=== PATIENT | male | born 1960 | race Caucasian/White ===

== ENCOUNTER 2018-09-15 10:14 | Inpatient (IN) ==
[2018-09-15] MEDS ORDERED: methylPREDNISolone SOD SUC 125 MG/2 ML VIAL IV STA (10:47)
[2018-09-15] MEDS ORDERED: ALBUTEROL/IPRATROPIUM 3 ML NEB RESP TX STA (10:47)
[2018-09-15 11:05] LABS: Basophils # 0.1 10*3/uL (0.0-0.2); Basophils % 0.5 % (0.0-0.8); Eosinophils # 0.2 10*3/uL (0.0-0.87); Eosinophils % 1.7 % (0.00-10.9); Hematocrit 50.1 VOL% (42.0-52.0); Hemoglobin 16.5 GM/DL (14.0-18.0); Immature Granulocytes % 0.6 %; Immature Granulocytes Absolute 0.06 #; Lymphocytes # 1.8 10*3/uL (1.4-4.0); Lymphocytes % 19.6 % (21.2-54.2); Mean Corpuscular HGB Conc 32.9 GM/DL (32-36); Mean Corpuscular Hemoglobin 29 PG (27-34); Mean Corpuscular Volume 88.2 FL (87-102); Mean Platelet Volume 9.4 FL (9.6-12.0); Monocytes # 0.8 10*3/uL (0.11-0.8); Monocytes % 8.4 % (1.7-12.7); Neutrophils # 6.5 10*3/uL (1.4-7.4); Neutrophils % 69.2 % (38.7-73.9); Platelet Count 324 T/CUMM (130-400); Red Blood Count 5.68 MC/CUMM (3.8-5.5); Red Cell Distribution Width 12.5 % (9.3-17.3); White Blood Count 9.4 T/CUMM (4-12)
[2018-09-15 11:11] LABS: INR 0.9; PT Patient Result 10.2 SECS
[2018-09-15 11:25] LABS: ABG Base Excess 0.7 MMOL/L (-2.5-2.5); ABG HCO3 24.9 MMOL/L (20-26); ABG Oxygen Saturation 94.6 % (95-100); ABG PCO2 36.7 MM HG (35-48); ABG PH 7.433 (7.35-7.45); ABG PO2 70.1 MM HG (80-95); ABG TCO2 20.7 MMOL/L (23-27)
[2018-09-15 11:35] LABS: Albumin 3.5 G/DL (3.4-5.0); Calcium 8.9 MG/DL (8.5-10.1); Osmolality,Calculated 274.7 MOS/KG (273-304); Potassium 4.1 MMOL/L (3.5-5.1); Total Protein 6.9 G/DL (6.4-8.3)
[2018-09-15] MEDS ORDERED: PROMETHAZINE 25 MG/1 ML VIAL IM PRN (11:59)
[2018-09-15] MEDS ORDERED: ACETAMINOPHEN 325 MG TABLET PO PRN (11:59)
[2018-09-15] MEDS ORDERED: ONDANSETRON 4 MG/2 ML VIAL IV PRN (11:59)
[2018-09-15] MEDS ORDERED: KETOROLAC 60 MG/2 ML VIAL IM ONE (13:21)
[2018-09-15 15:23] LABS: Total Protein,Body Fluid 4.3 G/DL
[2018-09-15 16:44] LABS: Eosinophils,Pleural Fluid 6 %; Lymphocytes,Pleural Fluid 80 %; Monocytes,Pleural Fluid 4 %; Neutrophils,Pleural Fluid 10 %; RBC,Pleural Fluid 17724 T/CUMM
[2018-09-15] MEDS: LEVOFLOXACIN INJ 750 MG in PREMIX 1 EACH IV SCH (18:08)
[2018-09-15] MEDS: ALBUTEROL/IPRATROPIUM 3 ML NEB RESP TX SCH (19:40)
[2018-09-16] MEDS: ALBUTEROL/IPRATROPIUM 3 ML NEB RESP TX SCH ×4 (00:33→19:43)
[2018-09-16 06:01] LABS: Basophils % 0.2 % (0.0-0.8); Eosinophils % 0.2 % (0.00-10.9); Hemoglobin 14.1 GM/DL (14.0-18.0); Immature Granulocytes % 1.6 %; Immature Granulocytes Absolute 0.24 #; Lymphocytes # 1.3 10*3/uL (1.4-4.0); Lymphocytes % 8.9 % (21.2-54.2); Mean Corpuscular HGB Conc 33.6 GM/DL (32-36); Mean Corpuscular Hemoglobin 30 PG (27-34); Mean Corpuscular Volume 88.1 FL (87-102); Mean Platelet Volume 9.3 FL (9.6-12.0); Monocytes # 0.9 10*3/uL (0.11-0.8); Monocytes % 6.4 % (1.7-12.7); Neutrophils # 12.1 10*3/uL (1.4-7.4); Neutrophils % 82.7 % (38.7-73.9); Platelet Count 259 T/CUMM (130-400); Red Blood Count 4.77 MC/CUMM (3.8-5.5); White Blood Count 14.6 T/CUMM (4-12)
[2018-09-16 06:23] LABS: Calcium 8.3 MG/DL (8.5-10.1); Osmolality,Calculated 277.7 MOS/KG (273-304); Potassium 4.3 MMOL/L (3.5-5.1); Risk Ratio 3.31; Thyroid Stimulating Hormone 0.642 uIU/ml (0.358-3.74); VLDL CHOLESTEROL 23.8 MG/DL
[2018-09-16] MEDS ORDERED: LIDOCAINE 2%/EPI 20 ML VIAL MISC INJ ONE (11:00)
[2018-09-16] MEDS: PANTOPRAZOLE 40 MG TABLET PO SCH (11:08)
[2018-09-16] MEDS ORDERED: MORPHINE 10 MG/1 ML VIAL IV ONE (14:50)
[2018-09-16] MEDS ORDERED: MORPHINE 10 MG/1 ML VIAL ONE (14:58)
[2018-09-16] MEDS: LEVOFLOXACIN INJ 750 MG in PREMIX 1 EACH IV SCH (16:33)
[2018-09-16] MEDS: MORPHINE 4 MG/1 ML VIAL IV PRN ×2 (18:34→22:56)
[2018-09-16] MEDS: ENOXAPARIN 40 MG/0.4 ML SYRINGE SUBCUT SCH (22:56)
[2018-09-17] MEDS: ALBUTEROL/IPRATROPIUM 3 ML NEB RESP TX SCH ×4 (00:14→20:50)
[2018-09-17] MEDS: MORPHINE 4 MG/1 ML VIAL IV PRN ×2 (01:36→05:49)
[2018-09-17] MEDS ORDERED: GLYCOPYRROLATE 0.4 MG/2 ML VIAL IM ONE (07:00)
[2018-09-17] MEDS ORDERED: PROMETHAZINE 25 MG/1 ML VIAL IM ONE (07:00)
[2018-09-17] MEDS ORDERED: MEPERIDINE 50 MG/1 ML VIAL IM ONE (07:00)
[2018-09-17] MEDS ORDERED: MIDAZOLAM 2 MG/2 ML VIAL ONE (07:00)
[2018-09-17] MEDS ORDERED: MIDAZOLAM 2 MG/2 ML VIAL IV ONE (07:30)
[2018-09-17] MEDS ORDERED: LIDOCAINE 2% 20 ML VIAL RESP TX ONE (07:30)
[2018-09-17] MEDS ORDERED: LIDOCAINE 2% VISCOUS 100 ML BOTTLE SWISH/SPIT ONE (07:30)
[2018-09-17] MEDS ORDERED: LIDOCAINE 1% 20 ML VIAL MISC INJ ONE (07:30)
[2018-09-17] MEDS: PANTOPRAZOLE 40 MG TABLET PO SCH (10:26)
[2018-09-17] MEDS ORDERED: HYDROmorphone 2 MG/1 ML VIAL IV PRN (13:28)
[2018-09-17] MEDS: KETOROLAC 30 MG/1 ML VIAL IV SCH ×2 (14:01→20:20)
[2018-09-17] MEDS: LEVOFLOXACIN INJ 750 MG in PREMIX 1 EACH IV SCH (16:13)
[2018-09-17] MEDS: ENOXAPARIN 40 MG/0.4 ML SYRINGE SUBCUT SCH (20:22)
[2018-09-18] MEDS: ALBUTEROL/IPRATROPIUM 3 ML NEB RESP TX SCH ×4 (00:42→20:40)
[2018-09-18] MEDS: KETOROLAC 30 MG/1 ML VIAL IV SCH ×4 (01:52→18:44)
[2018-09-18 04:28] LABS: Basophils # 0.1 10*3/uL (0.0-0.2); Basophils % 0.7 % (0.0-0.8); Eosinophils # 0.2 10*3/uL (0.0-0.87); Eosinophils % 2.9 % (0.00-10.9); Hemoglobin 13.7 GM/DL (14.0-18.0); Immature Granulocytes % 0.5 %; Immature Granulocytes Absolute 0.04 #; Lymphocytes # 1.6 10*3/uL (1.4-4.0); Lymphocytes % 20.8 % (21.2-54.2); Mean Corpuscular HGB Conc 31.9 GM/DL (32-36); Mean Corpuscular Hemoglobin 29 PG (27-34); Mean Corpuscular Volume 89.4 FL (87-102); Mean Platelet Volume 9.2 FL (9.6-12.0); Monocytes # 0.7 10*3/uL (0.11-0.8); Monocytes % 9.8 % (1.7-12.7); Neutrophils # 4.9 10*3/uL (1.4-7.4); Neutrophils % 65.3 % (38.7-73.9); Platelet Count 241 T/CUMM (130-400); Red Blood Count 4.81 MC/CUMM (3.8-5.5); Red Cell Distribution Width 12.2 % (9.3-17.3); White Blood Count 7.6 T/CUMM (4-12)
[2018-09-18 04:48] LABS: Calcium 8.3 MG/DL (8.5-10.1); Osmolality,Calculated 278.7 MOS/KG (273-304); Potassium 3.8 MMOL/L (3.5-5.1)
[2018-09-18] MEDS ORDERED: DOXYCYCLINE HYCLATE INJ 200 MG, LIDOCAINE 1% INJ 20 ML in STERILE WATER INJ 40 ML INTRAPLEUR ONE (08:00)
[2018-09-18] MEDS: PANTOPRAZOLE 40 MG TABLET PO SCH (08:25)
[2018-09-18] MEDS: LEVOFLOXACIN INJ 750 MG in PREMIX 1 EACH IV SCH (17:53)
[2018-09-18 18:21] LABS: Hematocrit 44.2 VOL% (42.0-52.0); Hemoglobin 14.4 GM/DL (14.0-18.0)
[2018-09-19] MEDS: ALBUTEROL/IPRATROPIUM 3 ML NEB RESP TX SCH ×3 (00:47→13:37)
[2018-09-19 04:28] LABS: Basophils % 0.4 % (0.0-0.8); Eosinophils # 0.2 10*3/uL (0.0-0.87); Eosinophils % 2.9 % (0.00-10.9); Hematocrit 40.8 VOL% (42.0-52.0); Hemoglobin 13.2 GM/DL (14.0-18.0); Immature Granulocytes % 0.7 %; Immature Granulocytes Absolute 0.05 #; Lymphocytes # 1.1 10*3/uL (1.4-4.0); Lymphocytes % 14.7 % (21.2-54.2); Mean Corpuscular HGB Conc 32.4 GM/DL (32-36); Mean Corpuscular Hemoglobin 29 PG (27-34); Mean Corpuscular Volume 88.7 FL (87-102); Mean Platelet Volume 9.2 FL (9.6-12.0); Monocytes # 0.6 10*3/uL (0.11-0.8); Monocytes % 8.2 % (1.7-12.7); Neutrophils # 5.2 10*3/uL (1.4-7.4); Neutrophils % 73.1 % (38.7-73.9); Platelet Count 234 T/CUMM (130-400); Red Cell Distribution Width 12.2 % (9.3-17.3); White Blood Count 7.2 T/CUMM (4-12)
[2018-09-19] MEDS: PANTOPRAZOLE 40 MG TABLET PO SCH (08:19)
[2018-09-19] MEDS: MORPHINE 4 MG/1 ML VIAL IV PRN ×2 (08:19→11:11)
[2018-09-19] MEDS ORDERED: DOXYCYCLINE HYCLATE INJ 200 MG, LIDOCAINE 1% INJ 20 ML in STERILE WATER INJ 40 ML INTRAPLEUR ONE (09:00)
[2018-09-19 16:00] VITALS: BP 116/75
[2018-09-19] MEDS: LEVOFLOXACIN INJ 750 MG in PREMIX 1 EACH IV SCH (17:17)
== END 2018-09-19 17:45 | disposition home or self-care (01) | DRG 167 ==
LOC: N.ED 10:14 → SUPCPDRO 12:34 → N.EDINP 12:34 → N.5E 16:09 → N.4E 09-17 20:49
PROVIDERS: ADMIT Family Medicine; ATTEND Family Medicine
PROC: BRONCHB (2018-09-17 07:35)

== ENCOUNTER 2019-09-09 22:30 | Observation (INO) ==
[2019-09-09] MEDS ORDERED: ALBUTEROL/IPRATROPIUM 3 ML NEB RESP TX STA (23:07)
[2019-09-09] MEDS ORDERED: MEROPENEM 1,000 MG in SODIUM CHLORIDE 0.9% 100 ML IV ONE (23:07)
[2019-09-09] MEDS ORDERED: methylPREDNISolone SOD SUC 125 MG/2 ML VIAL IV STA (23:07)
[2019-09-09] MEDS ORDERED: ACETAMINOPHEN/CODEINE 120-12 MG/5 ML 12.5 ML UDCUP PO STA (23:19)
[2019-09-09 23:20] LABS: Basophils % 0.6 % (0.0-0.8); Eosinophils # 0.2 10*3/uL (0.0-0.87); Eosinophils % 2.8 % (0.00-10.9); Hematocrit 35.1 VOL% (42.0-52.0); Immature Granulocytes % 0.7 %; Immature Granulocytes Absolute 0.05 #; Lymphocytes # 0.9 10*3/uL (1.4-4.0); Lymphocytes % 13.8 % (21.2-54.2); Mean Corpuscular HGB Conc 31.3 GM/DL (32-36); Mean Corpuscular Volume 81.1 FL (87-102); Mean Platelet Volume 9.1 FL (9.6-12.0); Neutrophils % 74.1 % (38.7-73.9); Platelet Count 282 T/CUMM (130-400); Red Blood Count 4.33 MC/CUMM (3.8-5.5); Red Cell Distribution Width 12.2 % (9.3-17.3); White Blood Count 6.8 T/CUMM (4-12)
[2019-09-09 23:36] LABS: PT Patient Result 10.5 SECS (9.6-12.2); Partial Thromboplastin Time 35.3 SECS (20.8-36.0)
[2019-09-09 23:37] LABS: Alanine Aminotransferase 18 U/L (16-61); Albumin 2.9 G/DL (3.4-5.0); Alkaline Phosphatase 156 U/L (45-117); Aspartate Amino Transferase 13 U/L (0-37); Bilirubin,Total < 0.39 MG/DL (0.2-1.0); Blood Urea Nitrogen 16 MG/DL (7-18); Calcium 8.7 MG/DL (8.5-10.1); Estimated Glom Filtration Rate 83 ML/MIN; Glucose 110 MG/DL (74-106); Total Protein 7.1 G/DL (6.4-8.3)
[2019-09-10] MEDS ORDERED: NICOTINE 21 MG/24 HR PATCH TRANSDERM PRN (01:35)
[2019-09-10] MEDS ORDERED: MORPHINE 4 MG/1 ML VIAL IV PRN (01:35)
[2019-09-10] MEDS ORDERED: ONDANSETRON 4 MG/2 ML VIAL IV PRN ×2 (01:35→16:26)
[2019-09-10] MEDS ORDERED: methylPREDNISolone SOD SUC 40 MG/1 ML VIAL IV SCH (02:00)
[2019-09-10] MEDS: MEROPENEM 500 MG in SODIUM CHLORIDE 0.9% 100 ML IV SCH ×3 (05:32→21:11)
[2019-09-10] MEDS: ALBUTEROL/IPRATROPIUM 3 ML NEB RESP TX SCH ×3 (07:18→21:23)
[2019-09-10 08:06] LABS: Basophils % 0.2 % (0.0-0.8); Hematocrit 35.6 VOL% (42.0-52.0); Hemoglobin 11.3 GM/DL (14.0-18.0); Immature Granulocytes % 0.4 %; Immature Granulocytes Absolute 0.02 #; Lymphocytes # 0.5 10*3/uL (1.4-4.0); Lymphocytes % 10.3 % (21.2-54.2); Mean Corpuscular HGB Conc 31.7 GM/DL (32-36); Mean Corpuscular Volume 79.8 FL (87-102); Mean Platelet Volume 9.2 FL (9.6-12.0); Monocytes % 0.8 % (1.7-12.7); Neutrophils % 88.3 % (38.7-73.9); Platelet Count 265 T/CUMM (130-400); Red Blood Count 4.46 MC/CUMM (3.8-5.5); Red Cell Distribution Width 12.3 % (9.3-17.3); White Blood Count 5.1 T/CUMM (4-12)
[2019-09-10] MEDS: PANTOPRAZOLE 40 MG VIAL IV SCH ×2 (10:07→21:06)
[2019-09-10] MEDS ORDERED: BENZTROPINE 2 MG/2 ML AMP IV PRN (16:26)
[2019-09-10] MEDS ORDERED: TEMAZEPAM 7.5 MG CAPSULE PO PRN (16:26)
[2019-09-10] MEDS ORDERED: LACTULOSE 20 GM/30 ML UDCUP PO PRN (16:26)
[2019-09-10] MEDS ORDERED: chlorproMAZINE 25 MG TABLET PO PRN (16:26)
[2019-09-10] MEDS ORDERED: ACETAMINOPHEN 325 MG TABLET PO PRN (16:26)
[2019-09-10] MEDS ORDERED: ALPRAZolam 0.25 MG TABLET PO PRN (16:26)
[2019-09-10] MEDS ORDERED: MAGNESIUM HYDROXIDE SUSP 30 ML UDCUP PO PRN (16:26)
[2019-09-10] MEDS ORDERED: diphenhydrAMINE CAP 25 MG CAPSULE PO PRN (16:26)
[2019-09-10] MEDS ORDERED: LOPERAMIDE 2 MG CAPSULE PO PRN ×2 (16:26)
[2019-09-10] MEDS ORDERED: chlorproMAZINE INJ 50 MG in SODIUM CHLORIDE 0.9% 100 ML IV PRN (16:26)
[2019-09-10] MEDS ORDERED: guaiFENesin 200 MG/10 ML UDCUP PO PRN (16:26)
[2019-09-10] MEDS ORDERED: chlorproMAZINE INJ 25 MG in SODIUM CHLORIDE 0.9% 100 ML IV PRN (16:26)
[2019-09-10] MEDS ORDERED: MYLANTA/LIDO VISC 2:1 300 ML BOTTLE SWISH/SWAL PRN (16:26)
[2019-09-10] MEDS ORDERED: PROMETHAZINE INJ 25 MG in SODIUM CHLORIDE 0.9% 50 ML IV PRN (16:26)
[2019-09-10] MEDS ORDERED: MYLANTA/LIDO VISC 2:1 300 ML BOTTLE SWISH/SPIT PRN (16:26)
[2019-09-10] MEDS ORDERED: ALUMINUM/MAGNES/SIMETH MAX STR 30 ML UDCUP PO PRN (16:26)
[2019-09-10] MEDS ORDERED: traMADol 50 MG TABLET PO PRN (16:26)
[2019-09-10] MEDS: SODIUM CHLORIDE 0.9% 1,000 ML IV SCH (21:12)
[2019-09-11] MEDS: ALBUTEROL/IPRATROPIUM 3 ML NEB RESP TX SCH ×4 (02:23→19:17)
[2019-09-11] MEDS: MEROPENEM 500 MG in SODIUM CHLORIDE 0.9% 100 ML IV SCH ×4 (03:23→20:58)
[2019-09-11 05:42] LABS: Basophils % 0.1 % (0.0-0.8); Hematocrit 30.4 VOL% (42.0-52.0); Hemoglobin 9.6 GM/DL (14.0-18.0); Immature Granulocytes % 0.7 %; Immature Granulocytes Absolute 0.08 #; Lymphocytes # 0.9 10*3/uL (1.4-4.0); Lymphocytes % 7.6 % (21.2-54.2); Mean Corpuscular HGB Conc 31.6 GM/DL (32-36); Mean Corpuscular Volume 81.3 FL (87-102); Mean Platelet Volume 9.3 FL (9.6-12.0); Monocytes % 5.8 % (1.7-12.7); Neutrophils % 85.8 % (38.7-73.9); Platelet Count 265 T/CUMM (130-400); Red Blood Count 3.74 MC/CUMM (3.8-5.5); Red Cell Distribution Width 12.2 % (9.3-17.3); White Blood Count 11.4 T/CUMM (4-12)
[2019-09-11 06:06] LABS: Albumin 2.6 G/DL (3.4-5.0); Bilirubin,Total 0.7 MG/DL (0.2-1.0); Calcium 8.5 MG/DL (8.5-10.1); Ferritin 276.8 ng/ml (26-388); Total Protein 6.3 G/DL (6.4-8.3)
[2019-09-11] MEDS ORDERED: LIDOCAINE 2% 20 ML VIAL RESP TX ONE (07:00)
[2019-09-11] MEDS ORDERED: MEPERIDINE 50 MG/1 ML VIAL IM ONE (07:30)
[2019-09-11] MEDS ORDERED: PROMETHAZINE 25 MG/1 ML VIAL IM ONE (07:30)
[2019-09-11] MEDS ORDERED: MIDAZOLAM 2 MG/2 ML VIAL IV ONE (08:00)
[2019-09-11] MEDS ORDERED: LIDOCAINE 1% 20 ML VIAL MISC INJ ONE (08:00)
[2019-09-11] MEDS ORDERED: LIDOCAINE 2% VISCOUS 100 ML BOTTLE SWISH/SPIT ONE (08:00)
[2019-09-11] MEDS: PANTOPRAZOLE 40 MG VIAL IV SCH ×2 (08:41→20:54)
[2019-09-11] MEDS ORDERED: POTASSIUM CHLORIDE RIDER 10 MEQ in PREMIX 1 EACH IV PRN (08:54)
[2019-09-11] MEDS: POTASSIUM CHLORIDE 20 MEQ TABLET PO PRN ×3 (11:35→18:10)
[2019-09-11] MEDS: SODIUM CHLORIDE 0.9% 1,000 ML IV SCH (14:26)
[2019-09-12] MEDS: ALBUTEROL/IPRATROPIUM 3 ML NEB RESP TX SCH ×2 (00:30→07:05)
[2019-09-12] MEDS: MEROPENEM 500 MG in SODIUM CHLORIDE 0.9% 100 ML IV SCH ×2 (03:39→08:43)
[2019-09-12 08:08] VITALS: BP 136/82
[2019-09-12] MEDS: PANTOPRAZOLE 40 MG VIAL IV SCH (08:43)
[2019-09-12] MEDS: SODIUM CHLORIDE 0.9% 1,000 ML IV SCH (08:44)
[2019-09-12 09:35] LABS: Basophils % 0.6 % (0.0-0.8); Eosinophils # 0.1 10*3/uL (0.0-0.87); Eosinophils % 1.4 % (0.00-10.9); Hematocrit 33.2 VOL% (42.0-52.0); Hemoglobin 10.1 GM/DL (14.0-18.0); Immature Granulocytes % 0.9 %; Immature Granulocytes Absolute 0.06 #; Lymphocytes # 0.9 10*3/uL (1.4-4.0); Lymphocytes % 14.2 % (21.2-54.2); Mean Corpuscular HGB Conc 30.4 GM/DL (32-36); Mean Corpuscular Volume 82.4 FL (87-102); Mean Platelet Volume 8.9 FL (9.6-12.0); Monocytes % 6.3 % (1.7-12.7); Neutrophils % 76.6 % (38.7-73.9); Platelet Count 249 T/CUMM (130-400); Red Blood Count 4.03 MC/CUMM (3.8-5.5); Red Cell Distribution Width 12.6 % (9.3-17.3); White Blood Count 6.3 T/CUMM (4-12)
== END 2019-09-12 10:53 | disposition home or self-care (01) ==
LOC: N.ED 22:30 → N.EDINP 22:30 → SUATTDRO 09-10 01:35 → N.4E 09-10 02:01
PROVIDERS: ADMIT Internal Medicine; ATTEND Internal Medicine Geriatric Medicine

== ENCOUNTER 2019-09-16 10:06 | Inpatient (IN) ==
[~2019-09-16 10:06] MED LIST: LIDOCAINE 2% 5 ML VIAL ONE; propofoL 200 MG/20 ML VIAL IV ONE
[2019-09-16] MEDS ORDERED: ONDANSETRON 4 MG/2 ML VIAL ONE (10:56)
[2019-09-16] MEDS ORDERED: LACTATED RINGERS 1,000 ML IV SCH (11:00)
[2019-09-16] MEDS: ONDANSETRON 4 MG/2 ML VIAL IV PRN ×3 (11:00→20:34)
[2019-09-16] MEDS ORDERED: ACETAMINOPHEN 325 MG TABLET PO PRN (16:09)
[2019-09-16 16:39] LABS: Basophils % 0.2 % (0.0-0.8); Eosinophils % 0.3 % (0.00-10.9); Hemoglobin 12.6 GM/DL (14.0-18.0); Immature Granulocytes % 0.5 %; Immature Granulocytes Absolute 0.05 #; Lymphocytes # 0.6 10*3/uL (1.4-4.0); Mean Corpuscular HGB Conc 32.3 GM/DL (32-36); Mean Corpuscular Volume 78.5 FL (87-102); Mean Platelet Volume 8.9 FL (9.6-12.0); Monocytes % 6.7 % (1.7-12.7); Neutrophils % 87.3 % (38.7-73.9); Platelet Count 305 T/CUMM (130-400); Red Blood Count 4.97 MC/CUMM (3.8-5.5); Red Cell Distribution Width 12.5 % (9.3-17.3)
[2019-09-16 17:02] LABS: Calcium 8.7 MG/DL (8.5-10.1); Osmolality,Calculated 260.8 MOS/KG (273-304)
[2019-09-16] MEDS: MORPHINE 4 MG/1 ML VIAL IV PRN (17:05)
[2019-09-16] MEDS: SODIUM CHLORIDE 0.9% 1,000 ML IV SCH (17:05)
[2019-09-16] MEDS: PANTOPRAZOLE 40 MG TABLET PO SCH (20:29)
[2019-09-17] MEDS: MORPHINE 4 MG/1 ML VIAL IV PRN ×5 (00:29→19:43)
[2019-09-17] MEDS: ONDANSETRON 4 MG/2 ML VIAL IV PRN ×5 (00:35→19:45)
[2019-09-17] MEDS: SODIUM CHLORIDE 0.9% 1,000 ML IV SCH ×3 (00:37→22:58)
[2019-09-17 04:51] LABS: Basophils % 0.2 % (0.0-0.8); Eosinophils % 0.3 % (0.00-10.9); Hematocrit 36.1 VOL% (42.0-52.0); Hemoglobin 11.8 GM/DL (14.0-18.0); Immature Granulocytes % 0.6 %; Immature Granulocytes Absolute 0.08 #; Lymphocytes # 0.7 10*3/uL (1.4-4.0); Lymphocytes % 5.6 % (21.2-54.2); Mean Corpuscular HGB Conc 32.7 GM/DL (32-36); Monocytes % 7.7 % (1.7-12.7); Neutrophils % 85.6 % (38.7-73.9); Platelet Count 269 T/CUMM (130-400); Red Blood Count 4.63 MC/CUMM (3.8-5.5); Red Cell Distribution Width 12.4 % (9.3-17.3); White Blood Count 12.7 T/CUMM (4-12)
[2019-09-17 05:54] LABS: Calcium 8.6 MG/DL (8.5-10.1); Osmolality,Calculated 264.5 MOS/KG (273-304); Risk Ratio 3.27; Thyroid Stimulating Hormone 3.28 uIU/ml (0.358-3.74)
[2019-09-17] MEDS ORDERED: PANTOPRAZOLE 40 MG TABLET PO SCH (09:00)
[2019-09-17] MEDS: PANTOPRAZOLE 40 MG TABLET PO SCH ×2 (09:28→20:19)
[2019-09-17] MEDS: hydrALAZINE 20 MG/1 ML VIAL IV PRN ×2 (14:04→19:40)
[2019-09-17] MEDS: CIPROFLOXACIN INJ 400 MG in PREMIX 1 EACH IV SCH (14:58)
[2019-09-17] MEDS: metroNIDAZOLE INJ 500 MG in PREMIX 1 EACH IV SCH ×2 (16:16→23:25)
[2019-09-17] MEDS ORDERED: amLODIPine 5 MG TABLET PO ONE (16:47)
[2019-09-17 18:29] LABS: Apearance,Urine CLEAR (Clear); Bilirubin,Urine Negative (Negative); Blood, Urine Small mg/dL (Negative); Glucose,Urine (UA) Negative (Negative); Ketones,Urine 80 mg/dL (Negative); Mucus,Urine Occasional /LPF (Occasional); Nitrite,Urine Negative (Negative); Protein,Urine Negative; RBC,Urine 4 /HPF (0-4); Squamous Epithelial Cell,Urine Occasional /HPF (0-10); Urine Color Yellow (Yellow); Urine Specific Gravity 1.046 (1.001-1.035); Urine Urobilinogen < 2.0 EU/DL (0.2-1.0)
[2019-09-17] MEDS: PROMETHAZINE INJ 25 MG in SODIUM CHLORIDE 0.9% 50 ML IV PRN (22:50)
[2019-09-17] MEDS: HYDROmorphone 2 MG/1 ML VIAL IV PRN (22:52)
[2019-09-18] MEDS: CIPROFLOXACIN INJ 400 MG in PREMIX 1 EACH IV SCH ×2 (02:56→14:11)
[2019-09-18] MEDS: HYDROmorphone 2 MG/1 ML VIAL IV PRN ×4 (02:56→20:37)
[2019-09-18] MEDS: ONDANSETRON 4 MG/2 ML VIAL IV PRN ×3 (02:59→20:37)
[2019-09-18] MEDS: PROMETHAZINE INJ 25 MG in SODIUM CHLORIDE 0.9% 50 ML IV PRN (06:10)
[2019-09-18] MEDS: metroNIDAZOLE INJ 500 MG in PREMIX 1 EACH IV SCH ×3 (07:09→22:22)
[2019-09-18] MEDS: methylPREDNISolone SOD SUC 40 MG/1 ML VIAL IV SCH ×2 (09:19→17:12)
[2019-09-18] MEDS: amLODIPine 5 MG TABLET PO SCH (09:19)
[2019-09-18] MEDS: PANTOPRAZOLE 40 MG TABLET PO SCH ×2 (09:25→20:39)
[2019-09-18 11:56] LABS: Apearance,Urine CLEAR (Clear); Bacteria,Urine Occasional /HPF (Few); Bilirubin,Urine Negative (Negative); Blood, Urine Small mg/dL (Negative); Glucose,Urine (UA) Negative (Negative); Ketones,Urine 80 mg/dL (Negative); Mucus,Urine Occasional /LPF (Occasional); Nitrite,Urine Negative (Negative); Protein,Urine Negative; RBC,Urine 8 /HPF (0-4); Squamous Epithelial Cell,Urine Occasional /HPF (0-10); Urine Color Yellow (Yellow); Urine Specific Gravity 1.019 (1.001-1.035); Urine Urobilinogen < 2.0 EU/DL (0.2-1.0); WBC,Urine 2 /HPF (0-6)
[2019-09-18] MEDS ORDERED: TRACE ELEMENTS (5) 1 ML, MULTIVITAMIN INJ 10 ML in AMINO ACIDS/DEXT/LYTES 4.25-5% 2,000 ML IV SCH (17:00)
[2019-09-18] MEDS ORDERED: DEXTROSE 10% 1,000 ML IV PRN (17:00)
[2019-09-18] MEDS: SODIUM CHLORIDE 0.9% 1,000 ML IV SCH (17:13)
[2019-09-18] MEDS: FAT EMULSION 20% 250 ML IV SCH (17:19)
[2019-09-19] MEDS: ONDANSETRON 4 MG/2 ML VIAL IV PRN ×5 (00:27→17:34)
[2019-09-19] MEDS: HYDROmorphone 2 MG/1 ML VIAL IV PRN ×6 (00:28→23:26)
[2019-09-19] MEDS: CIPROFLOXACIN INJ 400 MG in PREMIX 1 EACH IV SCH ×2 (02:44→16:27)
[2019-09-19] MEDS: methylPREDNISolone SOD SUC 40 MG/1 ML VIAL IV SCH ×3 (02:45→17:37)
[2019-09-19] MEDS: SODIUM CHLORIDE 0.9% 1,000 ML IV SCH ×2 (05:40→16:27)
[2019-09-19 06:47] LABS: Calcium 8.5 MG/DL (8.5-10.1); Osmolality,Calculated 266.7 MOS/KG (273-304); Prealbumin 10.3 MG/DL (20-40)
[2019-09-19] MEDS: PANTOPRAZOLE 40 MG TABLET PO SCH ×2 (09:29→21:07)
[2019-09-19] MEDS: amLODIPine 5 MG TABLET PO SCH (09:29)
[2019-09-19] MEDS: metroNIDAZOLE INJ 500 MG in PREMIX 1 EACH IV SCH ×2 (09:40→18:17)
[2019-09-19] MEDS: FAT EMULSION 20% 250 ML IV SCH (16:23)
[2019-09-19] MEDS: TRACE ELEMENTS (5) 1 ML, MULTIVITAMIN INJ 10 ML in AMINO ACIDS/DEXT/LYTES 4.25-5% 2,000 ML IV SCH (16:23)
[2019-09-19] MEDS: PROMETHAZINE INJ 25 MG in SODIUM CHLORIDE 0.9% 50 ML IV PRN (21:07)
[2019-09-20] MEDS: methylPREDNISolone SOD SUC 40 MG/1 ML VIAL IV SCH ×3 (01:59→17:40)
[2019-09-20] MEDS: metroNIDAZOLE INJ 500 MG in PREMIX 1 EACH IV SCH ×3 (02:00→20:32)
[2019-09-20] MEDS: CIPROFLOXACIN INJ 400 MG in PREMIX 1 EACH IV SCH ×2 (04:39→17:42)
[2019-09-20] MEDS: SODIUM CHLORIDE 0.9% 1,000 ML IV SCH ×2 (09:52→17:56)
[2019-09-20] MEDS: PROMETHAZINE INJ 25 MG in SODIUM CHLORIDE 0.9% 50 ML IV PRN ×2 (09:53→19:06)
[2019-09-20] MEDS: HYDROmorphone 2 MG/1 ML VIAL IV PRN ×3 (09:57→20:32)
[2019-09-20] MEDS: amLODIPine 5 MG TABLET PO SCH (09:58)
[2019-09-20] MEDS: PANTOPRAZOLE 40 MG TABLET PO SCH ×2 (11:00→20:32)
[2019-09-20] MEDS: TRACE ELEMENTS (5) 1 ML, MULTIVITAMIN INJ 10 ML in AMINO ACIDS/DEXT/LYTES 4.25-5% 2,000 ML IV SCH (11:06)
[2019-09-20] MEDS: ONDANSETRON 4 MG/2 ML VIAL IV PRN (15:28)
[2019-09-20] MEDS: FAT EMULSION 20% 250 ML IV SCH (15:31)
[2019-09-21] MEDS: HYDROmorphone 2 MG/1 ML VIAL IV PRN ×4 (02:48→17:13)
[2019-09-21] MEDS: methylPREDNISolone SOD SUC 40 MG/1 ML VIAL IV SCH ×3 (02:49→17:13)
[2019-09-21] MEDS: SODIUM CHLORIDE 0.9% 1,000 ML IV SCH ×2 (04:58→17:13)
[2019-09-21] MEDS: metroNIDAZOLE INJ 500 MG in PREMIX 1 EACH IV SCH ×3 (04:59→21:37)
[2019-09-21] MEDS: CIPROFLOXACIN INJ 400 MG in PREMIX 1 EACH IV SCH ×2 (04:59→17:13)
[2019-09-21] MEDS: TRACE ELEMENTS (5) 1 ML, MULTIVITAMIN INJ 10 ML in AMINO ACIDS/DEXT/LYTES 4.25-5% 2,000 ML IV SCH (06:48)
[2019-09-21] MEDS: PANTOPRAZOLE 40 MG TABLET PO SCH ×2 (09:03→21:37)
[2019-09-21] MEDS: amLODIPine 5 MG TABLET PO SCH (09:03)
[2019-09-21] MEDS: INSULIN REGULAR 100 UNIT/ML SUBCUT SCH ×2 (12:37→19:09)
[2019-09-21] MEDS: ONDANSETRON 4 MG/2 ML VIAL IV PRN ×2 (13:43→17:06)
[2019-09-21] MEDS: FAT EMULSION 20% 250 ML IV SCH (17:14)
[2019-09-21] MEDS: PROMETHAZINE INJ 25 MG in SODIUM CHLORIDE 0.9% 50 ML IV PRN (19:15)
[2019-09-21] MEDS: hydrALAZINE 20 MG/1 ML VIAL IV PRN (19:29)
[2019-09-21] MEDS: METOCLOPRAMIDE 10 MG/2 ML VIAL IV SCH (21:37)
[2019-09-22] MEDS: INSULIN REGULAR 100 UNIT/ML SUBCUT SCH ×4 (00:44→18:55)
[2019-09-22] MEDS: methylPREDNISolone SOD SUC 40 MG/1 ML VIAL IV SCH ×3 (00:45→17:45)
[2019-09-22] MEDS ORDERED: CALCIUM CARBONATE CHEW 500 MG TABLET PO PRN (00:56)
[2019-09-22] MEDS ORDERED: PANTOPRAZOLE 40 MG VIAL IV ONE (01:20)
[2019-09-22] MEDS: HYDROmorphone 2 MG/1 ML VIAL IV PRN ×4 (02:56→22:41)
[2019-09-22] MEDS: CIPROFLOXACIN INJ 400 MG in PREMIX 1 EACH IV SCH ×2 (04:34→17:45)
[2019-09-22 05:12] LABS: Basophils # 0.1 10*3/uL (0.0-0.2); Basophils % 0.3 % (0.0-0.8); Hematocrit 37.4 VOL% (42.0-52.0); Hemoglobin 12.2 GM/DL (14.0-18.0); Immature Granulocytes % 2.7 %; Immature Granulocytes Absolute 0.62 #; Lymphocytes # 0.8 10*3/uL (1.4-4.0); Lymphocytes % 3.5 % (21.2-54.2); Mean Corpuscular HGB Conc 32.6 GM/DL (32-36); Mean Corpuscular Volume 77.4 FL (87-102); Mean Platelet Volume 9.6 FL (9.6-12.0); Monocytes % 4.8 % (1.7-12.7); Neutrophils % 88.7 % (38.7-73.9); Platelet Count 357 T/CUMM (130-400); Red Blood Count 4.83 MC/CUMM (3.8-5.5); Red Cell Distribution Width 12.3 % (9.3-17.3); White Blood Count 22.9 T/CUMM (4-12)
[2019-09-22 05:36] LABS: Lymphocytes 2 % (20-55); Segmented Neutrophils 96 % (50-85); Total Cells Counted 100
[2019-09-22 05:38] LABS: Hypochromasia 1+; Platelet Estimate Adequate
[2019-09-22] MEDS: METOCLOPRAMIDE 10 MG/2 ML VIAL IV SCH ×3 (05:38→21:23)
[2019-09-22] MEDS: metroNIDAZOLE INJ 500 MG in PREMIX 1 EACH IV SCH ×3 (05:40→21:24)
[2019-09-22] MEDS: SODIUM CHLORIDE 0.9% 1,000 ML IV SCH (05:43)
[2019-09-22] MEDS: TRACE ELEMENTS (5) 1 ML, MULTIVITAMIN INJ 10 ML in AMINO ACIDS/DEXT/LYTES 4.25-5% 2,000 ML IV SCH (05:45)
[2019-09-22 05:58] LABS: Albumin 2.7 G/DL (3.4-5.0); Bilirubin,Total 0.4 MG/DL (0.2-1.0); Calcium 8.7 MG/DL (8.5-10.1); Osmolality,Calculated 265.7 MOS/KG (273-304); Total Protein 6.6 G/DL (6.4-8.3)
[2019-09-22] MEDS: ONDANSETRON 4 MG/2 ML VIAL IV PRN ×2 (07:30→17:45)
[2019-09-22] MEDS: amLODIPine 5 MG TABLET PO SCH (08:55)
[2019-09-22] MEDS: PANTOPRAZOLE 40 MG TABLET PO SCH ×2 (10:13→21:24)
[2019-09-22] MEDS: PROMETHAZINE INJ 25 MG in SODIUM CHLORIDE 0.9% 50 ML IV PRN ×2 (11:46→18:44)
[2019-09-22] MEDS: FAT EMULSION 20% 250 ML IV SCH (14:34)
[2019-09-23] MEDS: INSULIN REGULAR 100 UNIT/ML SUBCUT SCH ×4 (00:09→18:00)
[2019-09-23] MEDS: methylPREDNISolone SOD SUC 40 MG/1 ML VIAL IV SCH ×2 (01:23→10:38)
[2019-09-23] MEDS: SODIUM CHLORIDE 0.9% 1,000 ML IV SCH ×2 (03:23→08:41)
[2019-09-23] MEDS: HYDROmorphone 2 MG/1 ML VIAL IV PRN ×5 (03:30→22:45)
[2019-09-23] MEDS: PROMETHAZINE INJ 25 MG in SODIUM CHLORIDE 0.9% 50 ML IV PRN (03:34)
[2019-09-23] MEDS: metroNIDAZOLE INJ 500 MG in PREMIX 1 EACH IV SCH ×3 (05:32→21:51)
[2019-09-23] MEDS: METOCLOPRAMIDE 10 MG/2 ML VIAL IV SCH ×3 (05:34→21:50)
[2019-09-23] MEDS: CIPROFLOXACIN INJ 400 MG in PREMIX 1 EACH IV SCH ×2 (05:36→17:12)
[2019-09-23] MEDS: TRACE ELEMENTS (5) 1 ML, MULTIVITAMIN INJ 10 ML in AMINO ACIDS/DEXT/LYTES 4.25-5% 2,000 ML IV SCH (07:03)
[2019-09-23] MEDS: hydrALAZINE 20 MG/1 ML VIAL IV PRN ×2 (10:01→17:51)
[2019-09-23] MEDS: ONDANSETRON 4 MG/2 ML VIAL IV PRN (10:02)
[2019-09-23] MEDS: PANTOPRAZOLE 40 MG TABLET PO SCH ×2 (10:04→21:49)
[2019-09-23] MEDS: amLODIPine 5 MG TABLET PO SCH (10:04)
[2019-09-23] MEDS: predniSONE 20 MG TABLET PO SCH (10:39)
[2019-09-23] MEDS: FAT EMULSION 20% 250 ML IV SCH (13:48)
[2019-09-24] MEDS: INSULIN REGULAR 100 UNIT/ML SUBCUT SCH ×5 (00:24→23:49)
[2019-09-24 04:16] LABS: Basophils % 0.2 % (0.0-0.8); Hematocrit 36.8 VOL% (42.0-52.0); Hemoglobin 12.1 GM/DL (14.0-18.0); Immature Granulocytes % 2.8 %; Immature Granulocytes Absolute 0.62 #; Lymphocytes # 1.2 10*3/uL (1.4-4.0); Lymphocytes % 5.2 % (21.2-54.2); Mean Corpuscular HGB Conc 32.9 GM/DL (32-36); Mean Corpuscular Volume 76.7 FL (87-102); Mean Platelet Volume 9.5 FL (9.6-12.0); Monocytes % 9.2 % (1.7-12.7); Neutrophils % 82.6 % (38.7-73.9); Platelet Count 311 T/CUMM (130-400)
[2019-09-24 04:36] LABS: Band Neutrophils 1 % (0-10); Hypochromasia 1+; Lymphocytes 8 % (20-55); Platelet Estimate Adequate; Segmented Neutrophils 79 % (50-85); Total Cells Counted 100
[2019-09-24 04:45] LABS: Calcium 8.5 MG/DL (8.5-10.1); Osmolality,Calculated 262.1 MOS/KG (273-304)
[2019-09-24] MEDS: CIPROFLOXACIN INJ 400 MG in PREMIX 1 EACH IV SCH (04:45)
[2019-09-24] MEDS: TRACE ELEMENTS (5) 1 ML, MULTIVITAMIN INJ 10 ML in AMINO ACIDS/DEXT/LYTES 4.25-5% 2,000 ML IV SCH ×2 (06:02→23:14)
[2019-09-24] MEDS: METOCLOPRAMIDE 10 MG/2 ML VIAL IV SCH ×3 (06:03→23:08)
[2019-09-24] MEDS: metroNIDAZOLE INJ 500 MG in PREMIX 1 EACH IV SCH ×3 (06:06→21:13)
[2019-09-24] MEDS: SODIUM CHLORIDE 0.9% 1,000 ML IV SCH ×2 (06:08→21:11)
[2019-09-24] MEDS: PANTOPRAZOLE 40 MG TABLET PO SCH ×2 (08:56→22:16)
[2019-09-24] MEDS: predniSONE 20 MG TABLET PO SCH (08:56)
[2019-09-24] MEDS: amLODIPine 5 MG TABLET PO SCH (08:56)
[2019-09-24] MEDS: HYDROmorphone 2 MG/1 ML VIAL IV PRN ×4 (09:18→23:08)
[2019-09-24] MEDS: ONDANSETRON 4 MG/2 ML VIAL IV PRN ×2 (09:19→21:12)
[2019-09-24] MEDS: FAT EMULSION 20% 250 ML IV SCH (15:10)
[2019-09-24] MEDS ORDERED: AZITHROMYCIN INJ 250 MG in SODIUM CHLORIDE 0.9% 150 ML IV SCH (16:00)
[2019-09-24] MEDS ORDERED: ENOXAPARIN 40 MG/0.4 ML SYRINGE SUBCUT SCH (16:00)
[2019-09-24] MEDS: hydrALAZINE 20 MG/1 ML VIAL IV PRN (16:45)
[2019-09-24] MEDS: POTASSIUM CHLORIDE RIDER 10 MEQ in PREMIX 1 EACH IV PRN ×3 (17:55→23:52)
[2019-09-25] MEDS: POTASSIUM CHLORIDE RIDER 10 MEQ in PREMIX 1 EACH IV PRN ×3 (01:53→09:30)
[2019-09-25 04:50] LABS: Basophils % 0.2 % (0.0-0.8); Eosinophils % 0.2 % (0.00-10.9); Hematocrit 36.8 VOL% (42.0-52.0); Hemoglobin 12.1 GM/DL (14.0-18.0); Immature Granulocytes % 1.9 %; Immature Granulocytes Absolute 0.33 #; Lymphocytes # 0.8 10*3/uL (1.4-4.0); Lymphocytes % 4.5 % (21.2-54.2); Mean Corpuscular HGB Conc 32.9 GM/DL (32-36); Mean Corpuscular Volume 76.8 FL (87-102); Mean Platelet Volume 9.7 FL (9.6-12.0); Monocytes % 9.8 % (1.7-12.7); Neutrophils % 83.4 % (38.7-73.9); Platelet Count 273 T/CUMM (130-400); Red Blood Count 4.79 MC/CUMM (3.8-5.5); Red Cell Distribution Width 13.2 % (9.3-17.3); White Blood Count 17.3 T/CUMM (4-12)
[2019-09-25 05:11] LABS: Calcium 8.4 MG/DL (8.5-10.1); Osmolality,Calculated 260.1 MOS/KG (273-304)
[2019-09-25 05:27] LABS: Anisocytosis Slight; Hypochromasia 2+; Lymphocytes 6 % (20-55); Microcytosis Slight; Ovalocytes 2+; Platelet Estimate Normal; Segmented Neutrophils 84 % (50-85); Total Cells Counted 100
[2019-09-25] MEDS: METOCLOPRAMIDE 10 MG/2 ML VIAL IV SCH (06:16)
[2019-09-25] MEDS: INSULIN REGULAR 100 UNIT/ML SUBCUT SCH ×2 (06:17→12:06)
[2019-09-25] MEDS: ONDANSETRON 4 MG/2 ML VIAL IV PRN (07:22)
[2019-09-25] MEDS: HYDROmorphone 2 MG/1 ML VIAL IV PRN (07:22)
[2019-09-25] MEDS: amLODIPine 5 MG TABLET PO SCH (08:53)
[2019-09-25] MEDS: PANTOPRAZOLE 40 MG TABLET PO SCH (08:54)
[2019-09-25] MEDS: predniSONE 20 MG TABLET PO SCH (08:54)
[2019-09-25] MEDS ORDERED: predniSONE 20 MG TABLET PO SCH (10:05)
[2019-09-25 12:39] VITALS: BP 159/104
[2019-09-25] MEDS: hydrALAZINE 20 MG/1 ML VIAL IV PRN (12:54)
== END 2019-09-25 14:20 | disposition home or self-care (01) | DRG 392 ==
LOC: N.GILAB 10:06 → INTOOBSV 15:55 → N.4E 15:55 → SUATTDRO 15:55
PROVIDERS: ADMIT Internal Medicine; ATTEND Internal Medicine